=== PATIENT | male | born 1990 | race Caucasian/White ===

== ENCOUNTER 2018-07-09 00:01 | Inpatient (IN) | payer OTHER ==
[~2018-07-09] VITALS: Ht 165.1 cm; Wt 71.5 kg
[2018-07-09 05:30] VITALS: BP 116/67; PULSE 109; RESP 18; Ht 165.1 cm; Wt 71.5 kg
--- NOTE | 2018-07-09 05:48 | HP ---
Date/Time of Note Date/Time of Note DATE: 07/09/18 TIME: 05:47 Assessment/Plan VTE Prophylaxis Pharmacological prophylaxis: heparin Assessment/Plan Assessment/Plan 28-year-old male with intractable nausea and vomiting transferred from outside hospital for insurance reason after CT finding of distended fluid-filled stomach worrisome for gastric outlet obstruction PLAN Keep n.p.o. with IV fluid Pain meds and antiemetics as needed NG tube to low intermittent suction GI consult KUB Additional imaging as needed per GI HPI/ROS Admit Date/Time Admit Date/Time Jul 09, 2018 at 05:15 Hx of Present Illness This is a 28-year-old male with no significant past medical history who initially presented to an outside hospital complaining of nausea and vomiting. He also was unable to keep anything down. At the outside facility CT abdomen/pelvis shows distended fluid-filled stomach worrisome for gastric outlet obstruction. Patient was transferred to [facility] for insurance reason. PMH/Family/Social Past Medical History Coded Allergies: Penicillins (Verified Allergy, Severe, rashes, 07/09/18) Exam/Review of Systems Exam Exam Constitutional: other (no acute distress) Head: normocephalic Respiratory: other (slight decreased at bases) Cardiovascular: regular rate and rhythm Gastrointestinal: soft Extremities: normal pulses PMH/Family/Social Past Medical History Medical History: other (see hpi) Coded Allergies: No Known Drug Allergy (Verified Allergy, Unknown, 02/22/16) Past Surgical History Past Surgical Hx: other (see hpi) Family History Significant Family History: no pertinent family hx Social History Alcohol Use: other Smoking Status: Unknown if ever smoked Drug Use: other ALEKSEY LAWLER MD Jul 09, 2018 05:48
[2018-07-09] MEDS ORDERED: ONDANSETRON 4 MG INJ IV PRN (06:00)
[2018-07-09] MEDS ORDERED: NACL 0.9% 3 ML SYG IV SCH (06:00)
[2018-07-09] MEDS ORDERED: morphine 4 MG/ML VIAL IV PRN (06:00)
[2018-07-09] MEDS ORDERED: METOCLOPRAMIDE 10 MG INJ IV ONE (06:00)
[2018-07-09] MEDS: DEXTROSE 5%-0.45% NACL 1,000 ML IV SCH ×3 (06:33→21:41)
[2018-07-09] MEDS: PANTOPRAZOLE 40 MG INJ IV SCH (06:37)
[2018-07-09 07:51] VITALS: BP 105/55; PULSE 110; RESP 18
[2018-07-09 08:43] VITALS: BP 98/57; PULSE 100; RESP 20
--- NOTE | 2018-07-09 14:36 | CONS ---
Date/Time of Note Date/Time of Note DATE: 07/09/18 TIME: 14:32 Assessment/Plan Assessment/Plan Hospital Course Summary Assessment and Plan: Assessment: Query gastric outlet obstruction, on imaging Nausea/vomiting-resolved after NG tube placed Abdominal pain-resolved after placement of NGT Plan: NPO Keep NGT to LIS EGD tomorrow Endoscopy - risks/benefits/alternatives/indications of procedure and sedation/anesthesia discussed with patient who states understanding and gives informed consent to proceed. Seen in collaboration with Dr. Campbell Result Diagram: 07/09/18 0630 07/09/18 0630 Results 24hrs Laboratory Tests Test 07/09/18 06:30 White Blood Count 5.6 Red Blood Count 4.63 L Hemoglobin 14.7 Hematocrit 40.8 L Mean Corpuscular Volume 88.1 Mean Corpuscular Hemoglobin 31.7 Mean Corpuscular Hemoglobin Concent 36.0 Red Cell Distribution Width 11.3 L Platelet Count 170 Mean Platelet Volume 10.9 H Immature Granulocytes % 0.400 Neutrophils % 75.7 Lymphocytes % 12.2 L Monocytes % 11.5 H Eosinophils % 0.0 Basophils % 0.2 Nucleated Red Blood Cells % 0.0 Immature Granulocytes # 0.020 Neutrophils # 4.2 Lymphocytes # 0.7 L Monocytes # 0.6 Eosinophils # 0.0 Basophils # 0.0 Nucleated Red Blood Cells # 0.0 Sodium Level 139 Potassium Level 3.5 Chloride Level 104 Carbon Dioxide Level 25 Anion Gap 10 Blood Urea Nitrogen 16 Creatinine 1.05 Est Glomerular Filtrat Rate mL/min > 60 Glucose Level 110 Hemoglobin A1c 5.1 Calcium Level 8.4 Phosphorus Level 2.4 L Magnesium Level 1.3 L Total Bilirubin 1.2 Direct Bilirubin 0.00 Indirect Bilirubin 1.2 H Aspartate Amino Transf (AST/SGOT) 46 Alanine Aminotransferase (ALT/SGPT) 45 Alkaline Phosphatase 44 Total Protein 6.2 Albumin 3.7 Globulin 2.50 Albumin/Globulin Ratio 1.48 Thyroid Stimulating Hormone (TSH) 1.240 CC: RADHA CAMPBELL ; Consultation Date/Type/Reason Admit Date/Time Jul 09, 2018 at 05:15 Date of Consultation: Jul 09, 2018 Type of Consult GI Reason for Consultation Nausea/vomiting/abdominal pain Query gastric outlet obstruction on imaging Hx of Present Illness This is a 28-year-old male with no significant past medical history who presented to an outside hospital with complaints of persistent nausea/vomiting, abdominal discomfort, and loose stool. There he underwent imaging showing questi onable gastric outlet obstruction NG tube was in place to low intermittent suction with large amount of greenish fluid removed patient was transferred to [facility] due to insurance reasons. GI has been consulted for further evaluation currently patient with NG tube in place to low intermittent suction patient states since NG tube is in place he feels much better no further complaints of abdominal pain nausea or vomiting. Patient states he has not had any bowel movements today. He denies melena or hematochezia. Discussed plan for upper endoscopy. Reviewed risk/benefits/a lternatives patient verbalized understanding is agreeable to procedure. Review of Systems: A 12 system, review was conducted and is negative except as noted in the HPI or here. Past Medical History Medications Current Medications Dextrose/Sodium Chloride 1,000 ml @ 125 mls/hr Q8H IV Last administered on 07/09/18at 06:33; Admin Dose 125 MLS/HR; Start 07/09/18 at 05:41 IV Flush (NS 3 ml) 3 ml PER PROTOCOL IV ; Start 07/09/18 at 06:00 Ondansetron HCl (Zofran Inj) 4 mg Q6H PRN IV NAUSEA AND/OR VOMITING; Start 07/09/18 at 06:00 Morphine Sulfate (morphine) 2 mg Q4H PRN IV SEVERE PAIN LEVEL 7-10; Start 07/09/18 at 06:00 Pantoprazole (Protonix Iv) 40 mg DAILY@06 IV Last administered on 07/09/18at 06:37; Admin Dose 40 MG; Start 07/09/18 at 06:00 Influenza Virus Vaccine Quadrival (Fluzone) 0.5 ml ONCE ONCE IM* ; Start 07/10/18 at 10:00; Stop 07/10/18 at 10:01 Magnesium Sulfate 50 ml @ 25 mls/hr ONCE IVPB ; Start 07/09/18 at 15:00; Stop 07/09/18 at 16:59 Allergies: Coded Allergies: Penicillins (Verified Allergy, Severe, rashes, 07/09/18) Social History Smoking Status: Never smoker Exam/Review of Systems Vital Signs Vitals Vital Signs Date Temp Pulse Resp B/P (MAP) Pulse Ox O2 O2 Flow FiO2 Time Delivery Rate 07/09/18 100.5 100 20 98/57 (71) 08:43 07/09/18 96 Room Air 07:51 Intake and Output 07/08/18 07/08/18 07/09/18 1515:00 23:00 07:00 OutputOutput Total 20 ml BalanceBalance -20 ml Exam Constitutional: alert, oriented Psych: no complaints, nl mood/affect Head: normocephalic, atraumatic Eyes: nl conjunctiva ENMT: nl external ears & nose, other (NGT in place) Neck: supple, non-tender Respiratory: clear to auscultation Cardiovascular: regular rate and rhythm Gastrointestinal: soft, non-tender, bowel sounds; No ascites, No distended, No firm, No hepatomegaly, No rebound or guarding Musculoskeletal: nl extremities to inspection Medications Medications Current Medications Dextrose/Sodium Chloride 1,000 ml @ 125 mls/hr Q8H IV Last administered on 07/09/18at 06:33; Admin Dose 125 MLS/HR; Start 07/09/18 at 05:41 IV Flush (NS 3 ml) 3 ml PER PROTOCOL IV ; Start 07/09/18 at 06:00 Ondansetron HCl (Zofran Inj) 4 mg Q6H PRN IV NAUSEA AND/OR VOMITING; Start 07/09/18 at 06:00 Morphine Sulfate (morphine) 2 mg Q4H PRN IV SEVERE PAIN LEVEL 7-10; Start 07/09/18 at 06:00 Pantoprazole (Protonix Iv) 40 mg DAILY@06 IV Last administered on 07/09/18at 06:37; Admin Dose 40 MG; Start 07/09/18 at 06:00 Influenza Virus Vaccine Quadrival (Fluzone) 0.5 ml ONCE ONCE IM* ; Start 07/10/18 at 10:00; Stop 07/10/18 at 10:01 Magnesium Sulfate 50 ml @ 25 mls/hr ONCE IVPB ; Start 07/09/18 at 15:00; Stop 07/09/18 at 16:59 ANAHY LAZARO Jul 09, 2018 14:36
--- NOTE | 2018-07-09 14:53 | PN ---
Date/Time of Note Date/Time of Note DATE: 07/09/18 TIME: 14:53 Objective Vitals Vital Signs Date Temp Pulse Resp B/P (MAP) Pulse Ox O2 O2 Flow FiO2 Time Delivery Rate 07/09/18 100.5 100 20 98/57 (71) 08:43 07/09/18 96 Room Air 07:51 Intake and Output 07/08/18 07/08/18 07/09/18 1515:00 23:00 07:00 OutputOutput Total 20 ml BalanceBalance -20 ml Results Result Diagram: 07/09/18 0630 07/09/18 0630 Medications Medications Current Medications Dextrose/Sodium Chloride 1,000 ml @ 125 mls/hr Q8H IV Last administered on 07/09/18at 06:33; Admin Dose 125 MLS/HR; Start 07/09/18 at 05:41 IV Flush (NS 3 ml) 3 ml PER PROTOCOL IV ; Start 07/09/18 at 06:00 Ondansetron HCl (Zofran Inj) 4 mg Q6H PRN IV NAUSEA AND/OR VOMITING; Start 07/09/18 at 06:00 Morphine Sulfate (morphine) 2 mg Q4H PRN IV SEVERE PAIN LEVEL 7-10; Start 07/09/18 at 06:00 Pantoprazole (Protonix Iv) 40 mg DAILY@06 IV Last administered on 07/09/18at 06:37; Admin Dose 40 MG; Start 07/09/18 at 06:00 Influenza Virus Vaccine Quadrival (Fluzone) 0.5 ml ONCE ONCE IM* ; Start 07/10/18 at 10:00; Stop 07/10/18 at 10:01 Magnesium Sulfate 50 ml @ 25 mls/hr ONCE IVPB ; Start 07/09/18 at 15:00; Stop 07/09/18 at 16:59 VTE Prophylaxis Risk score (from Nsg)>0 risk: 0 SCD applied (from Nsg): Yes Lines/Catheters IV Catheter Type: Tidwell in Place: No Assessment/Plan Hospital Course Short progress note as H&P was done earlier today, patient asymptomatic, having no nausea vomiting or abdominal pain, pending upper endoscopy tomorrow GONSALO STALLINGS Jul 09, 2018 14:53
[2018-07-09] MEDS ORDERED: MAGNESIUM SULFATE 2 GM/50 ML 50 ML IVPB SCH (15:00)
[2018-07-09 20:03] VITALS: BP 121/56; PULSE 95; RESP 18
[2018-07-10] VITALS (24 sets, daily range): BP systolic 93–128; BP diastolic 41–74; PULSE 56–82; RESP 14–22
[2018-07-10] MEDS: DEXTROSE 5%-0.45% NACL 1,000 ML IV SCH ×3 (04:29→21:41)
[2018-07-10] MEDS: PANTOPRAZOLE 40 MG INJ IV SCH (06:30)
[2018-07-10] MEDS ORDERED: LIDOCAINE 2% (SDV) 5 ML INJ ONE (14:40)
[2018-07-10] MEDS ORDERED: PROPOFOL 40 ML ONE (14:40)
--- NOTE | 2018-07-10 14:43 | HPN ---
Date/Time of Note Date/Time of Note DATE: 07/10/18 TIME: 14:43 Interval H&P Admission Note Pt. seen H&P reviewed: No system changes RADHA CAMPBELL Jul 10, 2018 14:43
[2018-07-10] MEDS ORDERED: LEVOFLOXACIN 500MG/D5W (PMX) 100 ML IVPB SCH (15:00)
--- NOTE | 2018-07-10 15:29 | PN ---
Date/Time of Note Date/Time of Note DATE: 07/10/18 TIME: 15:29 Objective Vitals Vital Signs Date Temp Pulse Resp B/P (MAP) Pulse Ox O2 O2 Flow FiO2 Time Delivery Rate 07/10/18 64 14 123/69 100 Room Air 14:38 (87) 07/10/18 99.2 07:40 Intake and Output 07/09/18 07/09/18 07/10/18 1515:00 23:00 07:00 IntakeIntake Total 0 ml 1000 ml OutputOutput Total 300 ml 350 ml 300 ml BalanceBalance -300 ml 650 ml -300 ml Results Result Diagram: 07/10/18 0427 07/10/18 0427 Medications Medications Current Medications Dextrose/Sodium Chloride 1,000 ml @ 125 mls/hr Q8H IV Last administered on 07/10/18at 04:29; Admin Dose 125 MLS/HR; Start 07/09/18 at 05:41 IV Flush (NS 3 ml) 3 ml PER PROTOCOL IV ; Start 07/09/18 at 06:00 Ondansetron HCl (Zofran Inj) 4 mg Q6H PRN IV NAUSEA AND/OR VOMITING; Start 07/09/18 at 06:00 Morphine Sulfate (morphine) 2 mg Q4H PRN IV SEVERE PAIN LEVEL 7-10; Start 07/09/18 at 06:00 Pantoprazole (Protonix Iv) 40 mg DAILY@06 IV Last administered on 07/10/18at 06:30; Admin Dose 40 MG; Start 07/09/18 at 06:00 Levofloxacin/ Dextrose 100 ml @ 100 mls/hr Q24H IVPB ; Start 07/10/18 at 15:00 Metronidazole 100 ml @ 100 mls/hr Q8 IVPB ; Start 07/10/18 at 14:00 VTE Prophylaxis Risk score (from Nsg)>0 risk: 1 SCD applied (from Nsg): Yes Lines/Catheters IV Catheter Type: Tidwell in Place: No Assessment/Plan Hospital Course Subjective No acute complaints Objective Physical exam General: Patient is laying in bed and answers questions appropriately Mentation: Patient is alert and oriented 4, Head: Normocephalic atraumatic Eyes: EOMI, pupils reactive to light Neck: Supple, nontender, midline Respiratory: Clear to auscultation bilaterally Cardiovascular: regular rate, no obvious murmurs Gastrointestinal: non-tender to palpation, bowel sounds heard. Neurological: Moves all extremities spontaneously Skin: No new skin lesions Assessment and plan Abdominal pain, nausea, vomiting-resolved -Endoscopy today -Monitor Fever -Unknown cause -UA and blood cultures pending -Antibiotics -ID consulted Disposition -Endoscopy today -ID consulted for unknown fever GONSALO STALLINGS Jul 10, 2018 15:29
--- NOTE | 2018-07-10 16:08 | CONS ---
DATE OF ADMISSION: 07/09/2018 DATE OF CONSULTATION: 07/10/2018 TYPE OF CONSULTATION: Infectious disease. REASON FOR CONSULTATION: Antibiotic management. HISTORY OF PRESENT ILLNESS: Atif Grullon is a 28-year-old male who comes in with intractable nausea a nd vomiting, transferred from an outside hospital after CT findings of distended fluid-filled stomach worrisome for gastric outlet obstruction. The patient was seen by Nadine Menendez. She felt the pat ient had gastric outlet obstruction on imaging. Nausea and vomiting resolved after NG tube placed. Abdominal pain resolved after placement of an NG tube. He is to be kept n.p.o. Keep NG tube to agai n suction. EGD tomorrow, will be seen in collaboration with Dr. Linda. On admission, white count 5.6 with 76% polys, H and H of 14.7 and 40.8, platelet count 170,000. BUN and creatinine is 16/1.05, glu cose of 110. PAST MEDICAL HISTORY: Operations: None. FAMILY HISTORY: Noncontributory. SOCIAL HISTORY: He does not smoke, drink or abuse drugs. ALLERGIES: NONE TO SULFA OR FOODS. MEDICATIONS: Per chart. REVIEW OF SYSTEMS: As per HPI. PHYSICAL EXAMINATION: GENERAL: The patient is well-developed, well-nourished male who is awake, responsive, in no acute di stress. VITAL SIGNS: Stable. He is afebrile. His temperature went up to 101.5 yesterday, now 99.2. SKIN: Without generalized rash. HEENT: Within normal limits. NECK: Supple. LYMPH NODES: None palpable. CHEST: Decreased breath sounds at the bases. HEART: Without murmur or gallop. ABDOMEN: Soft, nontender without organosplenomegaly or masses. EXTREMITIES: Without cyanosis, clubbing or edema. RECTAL AND GENITAL: Deferred. NEUROLOGIC: No focal neurological abnormalities. SKIN: The patient has an NG tube in place. IMAGING: An x-ray of his abdomen showed enteric catheter. Stomach is not distended. There is mild ileus pattern. Calcifications seen in the right pelvis which likely represents phleboliths. IMPRESSION AND PLAN: The patient was started on Levaquin and metronidazole, which is appropriate. T he patient for some reason has fevers. HE ALSO HAS AN ALLERGY TO PENICILLIN. So, he is on Levaquin and Flagyl. He should have an EGD tomorrow and we will get more information at that time. I will di ctate my findings to the hospitalist. Dictated By: DEBBIE ALCANTARA MD, JD/RUSSELL Conf#: [id number] DID#: [id number] CC: ALEKSEY LAWLER MD; GONSALO STALLINGS MD;*EndCC*
[2018-07-10] MEDS: metroNIDAZOLE 500 MG/NS (PMX) 100 ML IVPB SCH ×2 (16:45→22:14)
[2018-07-10] MEDS: LEVOFLOXACIN 500MG/D5W (PMX) 100 ML IVPB SCH (18:35)
[2018-07-11 02:30] VITALS: BP 115/65; PULSE 60; RESP 20
[2018-07-11] MEDS: metroNIDAZOLE 500 MG/NS (PMX) 100 ML IVPB SCH ×3 (05:56→22:07)
[2018-07-11] MEDS: PANTOPRAZOLE 40 MG INJ IV SCH (05:56)
[2018-07-11] MEDS: DEXTROSE 5%-0.45% NACL 1,000 ML IV SCH ×3 (06:01→21:41)
[2018-07-11 08:29] VITALS: BP 114/58; PULSE 72; RESP 18
[2018-07-11] MEDS ORDERED: POTASSIUM CHLORIDE 20 MEQ POWDER FOR ORAL SOLN PO ONE (11:00)
[2018-07-11] MEDS ORDERED: MAGNESIUM SULFATE 1 GM/D5W 100 ML IVPB ONE (12:00)
--- NOTE | 2018-07-11 12:12 | PN ---
Date/Time of Note Date/Time of Note DATE: 07/11/18 TIME: 12:11 Objective Vitals Vital Signs Date Temp Pulse Resp B/P (MAP) Pulse Ox O2 O2 Flow FiO2 Time Delivery Rate 07/11/18 98.6 72 18 114/58 97 Room Air 08:29 (76) 07/10/18 2.0 15:18 Intake and Output 07/10/18 07/10/18 07/11/18 1515:00 23:00 07:00 IntakeIntake Total 600 ml 450 ml 1000 ml OutputOutput Total 1 ml BalanceBalance 599 ml 450 ml 1000 ml Results Result Diagram: 07/11/18 0423 07/11/18 0423 Medications Medications Current Medications Dextrose/Sodium Chloride 1,000 ml @ 125 mls/hr Q8H IV Last administered on 07/11/18at 06:01; Admin Dose 125 MLS/HR; Start 07/09/18 at 05:41 IV Flush (NS 3 ml) 3 ml PER PROTOCOL IV ; Start 07/09/18 at 06:00 Ondansetron HCl (Zofran Inj) 4 mg Q6H PRN IV NAUSEA AND/OR VOMITING; Start 07/09/18 at 06:00 Morphine Sulfate (morphine) 2 mg Q4H PRN IV SEVERE PAIN LEVEL 7-10; Start 07/09/18 at 06:00 Pantoprazole (Protonix Iv) 40 mg DAILY@06 IV Last administered on 07/11/18at 05:56; Admin Dose 40 MG; Start 07/09/18 at 06:00 Metronidazole 100 ml @ 100 mls/hr Q8 IVPB Last administered on 07/11/18at 05:56; Admin Dose 100 MLS/HR; Start 07/10/18 at 14:00 Levofloxacin/ Dextrose 100 ml @ 100 mls/hr Q24H IVPB Last administered on 07/10/18at 18:35; Admin Dose 100 MLS/HR; Start 07/10/18 at 18:00 Magnesium Sulfate/ Dextrose 100 ml @ 100 mls/hr ONCE ONCE IVPB ; Start 07/11/18 at 12:00; Stop 07/11/18 at 12:59 VTE Prophylaxis Risk score (from Ns)>0 risk: 0 SCD applied (from Nsg): Yes Lines/Catheters IV Catheter Type: Tidwell in Place: No Assessment/Plan Hospital Course Subjective No acute complaints Objective Physical exam General: Patient is laying in bed and answers questions appropriately Mentation: Patient is alert and oriented 4, Head: Normocephalic atraumatic Eyes: EOMI, pupils reactive to light Neck: Supple, nontender, midline Respiratory: Clear to auscultation bilaterally Cardiovascular: regular rate, no obvious murmurs Gastrointestinal: non-tender to palpation, bowel sounds heard. Neurological: Moves all extremities spontaneously Skin: No new skin lesions Assessment and plan Abdominal pain, nausea, vomiting-resolved -endoscopy did not show any acute pathology -Monitor Fever -Unknown cause -UA and blood cultures pending -Antibiotics -ID consulted Disposition -ID consulted for unknown fever, monitor until ID ok with GONSALO HOUSTON Jul 11, 2018 12:12
--- NOTE | 2018-07-11 12:14 | PN ---
Date/Time of Note Date/Time of Note DATE: 07/11/18 TIME: 12:13 Assessment/Plan VTE Prophylaxis Risk score (from Nsg)>0 risk: 0 SCD applied (from Nsg): Yes Pharmacological prophylaxis: other (scds) Lines/Catheters IV Catheter Type (from Nrsg): Urinary Cath still in place: No Assessment/Plan Hospital Course Summary Assessment and Plan: Assessment: Query gastric outlet obstruction, on imaging EGD 07/10/18 Gastritis Esophagitis Hiatal hernia No gastric outlet obstruction Nausea/vomiting-resolved after NG tube placed Abdominal pain-resolved after placement of NGT Fever- unclear etiology Plan: Advance diet as tolerated Await bx results Continue PPI po [id number] Seen in collaboration with Dr. Linda Subjective: Course reviewed with nursing staff Patient interviewed and examined All labs, imaging and other results reviewed The patient resting in bed, states he was able to have a bm. No c/o nausea or vomiting. Currently he denies abd pain. Tolerating clear liquid diet well, will advance as tolerated. Constitutional: alert, oriented Psych: no complaints, nl mood/affect Head: normocephalic, atraumatic Eyes: nl conjunctiva ENMT: nl external ears & nose, other (NGT in place) Neck: supple, non-tender Respiratory: clear to auscultation Cardiovascular: regular rate and rhythm Gastrointestinal: soft, non-tender, bowel sounds; No ascites, No distended, No firm, No hepatomegaly, No rebound or guarding Musculoskeletal: nl extremities to inspection Result Diagram: 07/11/18 0423 07/11/18 0423 Results 24hrs Laboratory Tests Test 07/10/18 17:00 07/11/18 04:23 Urine Color YELLOW Urine Clarity CLEAR Urine pH 6.0 Urine Specific Finger 1.012 Urine Ketones TRACE A Urine Nitrite NEGATIVE Urine Bilirubin NEGATIVE Urine Urobilinogen 2+ H Urine Leukocyte Esterase NEGATIVE Urine Hemoglobin NEGATIVE Urine Glucose NEGATIVE Urine Total Protein NEGATIVE White Blood Count 4.9 # Red Blood Count 4.14 L Hemoglobin 13.1 L Hematocrit 37.2 L Mean Corpuscular Volume 89.9 Mean Corpuscular Hemoglobin 31.6 Mean Corpuscular Hemoglobin Concent 35.2 Red Cell Distribution Width 11.3 L Platelet Count 142 Mean Platelet Volume 11.2 H Immature Granulocytes % 0.200 Neutrophils % 54.0 Lymphocytes % 29.8 Monocytes % 14.4 H Eosinophils % 1.4 Basophils % 0.2 Nucleated Red Blood Cells % 0.0 Immature Granulocytes # 0.010 Neutrophils # 2.6 Lymphocytes # 1.5 Monocytes # 0.7 Eosinophils # 0.1 Basophils # 0.0 Nucleated Red Blood Cells # 0.0 Sodium Level 142 Potassium Level 3.5 Chloride Level 103 Carbon Dioxide Level 30 Anion Gap 9 Blood Urea Nitrogen 6 L Creatinine 0.76 Est Glomerular Filtrat Rate mL/min > 60 Glucose Level 97 Calcium Level 8.9 Phosphorus Level 3.7 Magnesium Level 1.7 Exam/Review of Systems Vital Signs Vitals Vital Signs Date Temp Pulse Resp B/P (MAP) Pulse Ox O2 O2 Flow FiO2 Time Delivery Rate 07/11/18 98.6 72 18 114/58 97 Room Air 08:29 (76) 07/10/18 2.0 15:18 Intake and Output 07/10/18 07/10/18 07/11/18 1515:00 23:00 07:00 IntakeIntake Total 600 ml 450 ml 1000 ml OutputOutput Total 1 ml BalanceBalance 599 ml 450 ml 1000 ml Medications Medications Current Medications Dextrose/Sodium Chloride 1,000 ml @ 125 mls/hr Q8H IV Last administered on 07/11/18at 06:01; Admin Dose 125 MLS/HR; Start 07/09/18 at 05:41 IV Flush (NS 3 ml) 3 ml PER PROTOCOL IV ; Start 07/09/18 at 06:00 Ondansetron HCl (Zofran Inj) 4 mg Q6H PRN IV NAUSEA AND/OR VOMITING; Start 07/09/18 at 06:00 Morphine Sulfate (morphine) 2 mg Q4H PRN IV SEVERE PAIN LEVEL 7-10; Start 07/09/18 at 06:00 Pantoprazole (Protonix Iv) 40 mg DAILY@06 IV Last administered on 07/11/18at 05:56; Admin Dose 40 MG; Start 07/09/18 at 06:00 Metronidazole 100 ml @ 100 mls/hr Q8 IVPB Last administered on 07/11/18at 05:56; Admin Dose 100 MLS/HR; Start 07/10/18 at 14:00 Levofloxacin/ Dextrose 100 ml @ 100 mls/hr Q24H IVPB Last administered on 07/10/18at 18:35; Admin Dose 100 MLS/HR; Start 07/10/18 at 18:00 Magnesium Sulfate/ Dextrose 100 ml @ 100 mls/hr ONCE ONCE IVPB ; Start 07/11/18 at 12:00; Stop 07/11/18 at 12:59 ANAHY LAZARO Jul 11, 2018 12:14
--- NOTE | 2018-07-11 14:27 | CONS ---
Date/Time of Note Date/Time of Note DATE: 07/11/18 TIME: 14:27 Assessment/Plan Assessment/Plan Hospital Course Patient is alert eating lunch looks comfortable denies pain. No nausea vomiting diarrhea. No fevers overnight WBC 4.9 no shift no bands BUN 6 creatinine 00.76. Urinalysis on admission was negative. Abdominal x-ray revealed questionable mild ileus which is largely colonic Antimicrobials: Patient is on levofloxacin and Flagyl Physical examination. Well-developed well-nourished middle-aged man who is al ert in no distress. Head atraumatic normocephalic neck is supple chest rise symmetrical breath sounds clear heart S1-S2 abdomen soft bowel sounds present extremities without cyanosis edema Assessment: 1. Status post fever of unknown etiology possibly viral 2. Status post nausea vomiting, gastric outlet obstruction ruled out by EGD Plan: Patient remained stable. I order chest x-ray earlier results pending. If he remains afebrile and asymptomatic overnight we will will discontinue antibiot ics in a.m. Gastroenterology recommendations noted Result Diagram: 07/11/18 0423 07/11/18 0423 Results 24hrs Laboratory Tests Test 07/10/18 17:00 07/11/18 04:23 Urine Color YELLOW Urine Clarity CLEAR Urine pH 6.0 Urine Specific Barry 1.012 Urine Ketones TRACE A Urine Nitrite NEGATIVE Urine Bilirubin NEGATIVE Urine Urobilinogen 2+ H Urine Leukocyte Esterase NEGATIVE Urine Hemoglobin NEGATIVE Urine Glucose NEGATIVE Urine Total Protein NEGATIVE White Blood Count 4.9 # Red Blood Count 4.14 L Hemoglobin 13.1 L Hematocrit 37.2 L Mean Corpuscular Volume 89.9 Mean Corpuscular Hemoglobin 31.6 Mean Corpuscular Hemoglobin Concent 35.2 Red Cell Distribution Width 11.3 L Platelet Count 142 Mean Platelet Volume 11.2 H Immature Granulocytes % 0.200 Neutrophils % 54.0 Lymphocytes % 29.8 Monocytes % 14.4 H Eosinophils % 1.4 Basophils % 0.2 Nucleated Red Blood Cells % 0.0 Immature Granulocytes # 0.010 Neutrophils # 2.6 Lymphocytes # 1.5 Monocytes # 0.7 Eosinophils # 0.1 Basophils # 0.0 Nucleated Red Blood Cells # 0.0 Sodium Level 142 Potassium Level 3.5 Chloride Level 103 Carbon Dioxide Level 30 Anion Gap 9 Blood Urea Nitrogen 6 L Creatinine 0.76 Est Glomerular Filtrat Rate mL/min > 60 Glucose Level 97 Calcium Level 8.9 Phosphorus Level 3.7 Magnesium Level 1.7 Consultation Date/Type/Reason Admit Date/Time Jul 09, 2018 at 05:15 Initial Consult Date 07/09/18 Type of Consult id Exam/Review of Systems Vital Signs Vitals Vital Signs Date Temp Pulse Resp B/P (MAP) Pulse Ox O2 O2 Flow FiO2 Time Delivery Rate 07/11/18 98.6 72 18 114/58 97 Room Air 08:29 (76) 07/10/18 2.0 15:18 Intake and Output 07/10/18 07/10/18 07/11/18 1515:00 23:00 07:00 IntakeIntake Total 600 ml 450 ml 1000 ml OutputOutput Total 1 ml BalanceBalance 599 ml 450 ml 1000 ml Medications Medications Current Medications Dextrose/Sodium Chloride 1,000 ml @ 125 mls/hr Q8H IV Last administered on 07/11/18at 06:01; Admin Dose 125 MLS/HR; Start 07/09/18 at 05:41 IV Flush (NS 3 ml) 3 ml PER PROTOCOL IV ; Start 07/09/18 at 06:00 Ondansetron HCl (Zofran Inj) 4 mg Q6H PRN IV NAUSEA AND/OR VOMITING; Start 07/09/18 at 06:00 Morphine Sulfate (morphine) 2 mg Q4H PRN IV SEVERE PAIN LEVEL 7-10; Start 07/09/18 at 06:00 Metronidazole 100 ml @ 100 mls/hr Q8 IVPB Last administered on 07/11/18at 14:17; Admin Dose 100 MLS/HR; Start 07/10/18 at 14:00 Levofloxacin/ Dextrose 100 ml @ 100 mls/hr Q24H IVPB Last administered on 07/10/18at 18:35; Admin Dose 100 MLS/HR; Start 07/10/18 at 18:00 Pantoprazole (Protonix Tab) 40 mg DAILY@06 PO ; Start 07/12/18 at 06:00 VELMA WEBBER NP Jul 11, 2018 14:27
[2018-07-11] MEDS: LEVOFLOXACIN 500MG/D5W (PMX) 100 ML IVPB SCH (18:02)
[2018-07-11 19:25] VITALS: BP 115/69; PULSE 73; RESP 20
[2018-07-12 02:10] VITALS: BP 117/71; PULSE 65; RESP 20
[2018-07-12] MEDS: metroNIDAZOLE 500 MG/NS (PMX) 100 ML IVPB SCH ×2 (05:09→15:02)
[2018-07-12] MEDS: DEXTROSE 5%-0.45% NACL 1,000 ML IV SCH (05:18)
[2018-07-12] MEDS ORDERED: PANTOPRAZOLE (EC) 40 MG TAB PO SCH (06:00)
[2018-07-12 07:26] VITALS: BP 105/61; PULSE 80; RESP 15
[2018-07-12] MEDS ORDERED: OMEP20CA16 PO (10:14)
--- NOTE | 2018-07-12 10:16 | PDOCDIS ---
Discharge Instructions CONDITION [id number] Patient Condition: [id number] Stable FOLLOW UP/APPOINTMENTS Follow-up Plan 1.Please continue omeprazole for 1 month per GI doctor recommendations 2. Follow up with your primary care doctor within 1 week to repeat labs, CBC and comprehensive metabolic panel to ensure no infection GONSALO STALLINGS Jul 12, 2018 10:16
--- NOTE | 2018-07-12 12:19 | DS ---
Date/Time of Note Date/Time of Note DATE: 07/12/18 TIME: 12:19 Discharge Summary Admission/Discharge Info Admit Date/Time Jul 09, 2018 at 05:15 Discharge Date/Time Patient Condition: Stable Hospital Course Patient is a male with no significant past medical history who presents to [facility] as a transfer from outside facility for possible gastric outlet obstruction. Patient was diagnosed with gastric outlet obstruction and nausea vomiting at outside facility was transferred over to [facility] however upon arrival patient's abdominal pain, nausea vomiting had all subsided. GI saw the patient and performed upper endoscopy which showed no signs of gastric outlet obstruction. However they did fine hiatal hernia as well as gastritis and esophagitis, no bleed. It was recommended patient be placed on PPI for approximately 1 month. During this time patient developed unknown cause of fever and infectious disease was consulted. After being placed on antibiotics and no significant sources of infection found and 48 hours of being afebrile infectious disease recommended patient be discharged with no antibiotics. It was explained to the patient explicitly about his GI conditions as well as to follow-up with his primary care provider with repeat labs to ensure no infection as soon as possible. Patient understands Discharge diagnoses Abdominal pain, nausea, vomiting Gastritis Hiatal hernia Esophagitis Fever, resolved Home Meds Active Scripts Omeprazole* (Omeprazole*) 20 Mg Capsule., 20 MG PO DAILY, #30 CAP Prov:GONSALO STALLINGS 07/12/18 Follow-up Plan 1.Please continue omeprazole for 1 month per GI doctor recommendations 2. Follow up with your primary care doctor within 1 week to repeat labs, CBC and comprehensive metabolic panel to ensure no infection Primary Care Provider [facility] Time spent on discharge: > 30 minutes Pending Labs Laboratory Tests Test 07/12/18 04:29 White Blood Count 5.4 10^3/ul (4.8-10.8) Red Blood Count 4.34 10^6/ul (4.70-6.10) Hemoglobin 13.8 g/dl (14.0-18.0) Hematocrit 39.4 % (42.0-52.0) Mean Corpuscular Volume 90.8 fl (82.0-101.0) Mean Corpuscular Hemoglobin 31.8 pg (29.0-33.0) Mean Corpuscular Hemoglobin Concent 35.0 g/dl (32.0-37.0) Red Cell Distribution Width 11.3 % (11.5-14.5) Platelet Count 192 10^3/UL (140-415) Mean Platelet Volume 11.0 fl (7.4-10.4) Immature Granulocytes % 0.200 % (0.001-0.429) Neutrophils % 51.8 % (39.0-77.0) Lymphocytes % 34.2 % (15.0-51.0) Monocytes % 11.6 % (0.0-11.0) Eosinophils % 2.0 % (0.0-7.0) Basophils % 0.2 % (0.0-2.0) Nucleated Red Blood Cells % 0.0 /100WBC (0.0-0.0) Immature Granulocytes # 0.010 10^3/ul (0.0-0.031) Neutrophils # 2.8 10^3/ul (1.6-7.5) Lymphocytes # 1.9 10^3/ul (0.8-2.9) Monocytes # 0.6 10^3/ul (0.3-0.9) Eosinophils # 0.1 10^3/ul (0.0-0.5) Basophils # 0.0 10^3/ul (0.0-0.1) Nucleated Red Blood Cells # 0.0 10^3/ul (0.0-0.0) Sodium Level 142 mmol/L (135-144) Potassium Level 3.7 mmol/L (3.5-5.1) Chloride Level 101 mmol/L (97-110) Carbon Dioxide Level 29 mmol/L (21-31) Anion Gap 12 (5-13) Blood Urea Nitrogen 8 mg/dl (7-20) Creatinine 0.77 mg/dl (0.61-1.24) Est Glomerular Filtrat Rate mL/min > 60 mL/min (>60) Glucose Level 89 mg/dl (70-220) Calcium Level 9.1 mg/dl (8.4-10.2) Phosphorus Level 4.2 mg/dl (2.5-4.9) Magnesium Level 2.0 mg/dl (1.7-2.5) GONSALO STALLINGS Jul 12, 2018 12:19
--- NOTE | 2018-07-12 12:57 | CONS ---
Date/Time of Note Date/Time of Note DATE: 07/12/18 TIME: 12:53 Assessment/Plan Assessment/Plan Result Diagram: 07/12/18 0429 07/12/18 0429 Results 24hrs Laboratory Tests Test 07/12/18 04:29 White Blood Count 5.4 Red Blood Count 4.34 L Hemoglobin 13.8 L Hematocrit 39.4 L Mean Corpuscular Volume 90.8 Mean Corpuscular Hemoglobin 31.8 Mean Corpuscular Hemoglobin Concent 35.0 Red Cell Distribution Width 11.3 L Platelet Count 192 # Mean Platelet Volume 11.0 H Immature Granulocytes % 0.200 Neutrophils % 51.8 Lymphocytes % 34.2 Monocytes % 11.6 H Eosinophils % 2.0 Basophils % 0.2 Nucleated Red Blood Cells % 0.0 Immature Granulocytes # 0.010 Neutrophils # 2.8 Lymphocytes # 1.9 Monocytes # 0.6 Eosinophils # 0.1 Basophils # 0.0 Nucleated Red Blood Cells # 0.0 Sodium Level 142 Potassium Level 3.7 Chloride Level 101 Carbon Dioxide Level 29 Anion Gap 12 Blood Urea Nitrogen 8 Creatinine 0.77 Est Glomerular Filtrat Rate mL/min > 60 Glucose Level 89 Calcium Level 9.1 Phosphorus Level 4.2 Magnesium Level 2.0 Consultation Date/Type/Reason Admit Date/Time Jul 09, 2018 at 05:15 Initial Consult Date SUBJECTIVE: Patient is awake, alert, resting in bed. No fevers, nausea vomiting or diarrhea. VS: stable T: 98.3 LABS: Reviewed. MICRO: Urinalysis on admission was negative. Abdominal x-ray revealed questionable mild ileus which is largely colonic CXR 07/11: IMPRESSION: No evidence for active cardiopulmonary disease. Antimicrobials: levofloxacin and Flagyl Physical examination. GEN: Well-developed well-nourished middle-aged man who is alert in no distress. HENT: Head atraumatic normocephalic neck is supple Pulm: chest rise symmetrical breath sounds clear HEART: RRR, S1-S2 ABDOMEN: soft bowel sounds present EXTREM: without cyanosis edema Assessment: 1. Status post fever of unknown etiology possibly viral 2. Status post nausea vomiting, gastric outlet obstruction ruled out by EGD Plan: Patient remained stable. CXR noted. Gastroenterology recommendations noted. Exam/Review of Systems Vital Signs Vitals Vital Signs Date Temp Pulse Resp B/P (MAP) Pulse Ox O2 O2 Flow FiO2 Time Delivery Rate 07/12/18 98.3 80 15 105/61 99 Room Air 07:26 (76) 07/10/18 2.0 15:18 Intake and Output 07/11/18 07/11/18 07/12/18 1515:00 23:00 07:00 IntakeIntake Total 300 ml 1705 ml 1725 ml BalanceBalance 300 ml 1705 ml 1725 ml Medications Medications Current Medications IV Flush (NS 3 ml) 3 ml PER PROTOCOL IV ; Start 07/09/18 at 06:00 Ondansetron HCl (Zofran Inj) 4 mg Q6H PRN IV NAUSEA AND/OR VOMITING; Start 07/09/18 at 06:00 Morphine Sulfate (morphine) 2 mg Q4H PRN IV SEVERE PAIN LEVEL 7-10; Start 07/09/18 at 06:00 Metronidazole 100 ml @ 100 mls/hr Q8 IVPB Last administered on 07/12/18at 05:09; Admin Dose 100 MLS/HR; Start 07/10/18 at 14:00 Levofloxacin/ Dextrose 100 ml @ 100 mls/hr Q24H IVPB Last administered on 07/11/18at 18:02; Admin Dose 100 MLS/HR; Start 07/10/18 at 18:00 Pantoprazole (Protonix Tab) 40 mg DAILY@06 PO Last administered on 07/12/18at 05:10; Admin Dose 40 MG; Start 07/12/18 at 06:00 PARTHA LOYOLA Jul 12, 2018 12:57
[2018-07-12 14:59] VITALS: BP 114/63; PULSE 60; RESP 16
== END 2018-07-12 17:15 | disposition home or self-care (01) | DRG 392 ==
LOC: MS1 05:15
PROVIDERS: ADMIT Internal Medicine; ATTEND Internal Medicine
PROC: 0DB78ZX Excision of Stomach, Pylorus, Via Natural or Artificial Opening Endoscopic, Diagnostic (ICD-10-PCS; 2018-07-10)
PROC: 0DB68ZX Excision of Stomach, Via Natural or Artificial Opening Endoscopic, Diagnostic (ICD-10-PCS; principal; 2018-07-10 15:30)
DX: K29.70 Gastritis, unspecified, without bleeding (principal); K20.9 Esophagitis, unspecified; K44.9 Diaphragmatic hernia without obstruction or gangrene; R50.9 Fever, unspecified; Z88.0 Allergy status to penicillin
CPT/HCPCS: 71045; 74018; 80048; 80053; 81003; 83036; 83735; 84100; 84443; 85025; 87040; 88305; 88312; C9113; J1956; J2765; J3475; J7042